=== PATIENT | male | born 1945 | race Caucasian/White ===

== ENCOUNTER 2017-04-11 04:57 | Inpatient (IN) ==
[2017-04-05 16:37] LABS: Appearance,Urine CLEAR; Bilirubin,Urine NEG (NEG); Color,Urine YELLOW; Glucose,Urine (UA) NEGATIVE (NEG); Leukocyte Esterase,Urine NEG /uL (NEG); Nitrate,Urine NEG (NEG); Protein,Urine NEG (NEG); Specific Gravity,Urine 1.012 (1.000-1.035); Urine Blood NEG mg/dL (<0.03); Urobilinogen,Urine NEG (NEG)
[2017-04-05 17:12] LABS: Basophils # (Auto) 0 K/mcL (0.0-0.3); Basophils % (Auto) 0.7 % (0.0-2.0); Eosinophils # (Auto) 0 K/mcL (0.0-0.7); Eosinophils % (Auto) 0.9 % (0.0-7.0); Granulocytes % (Auto) 49.8 % (38.0-78.0); Lymphocytes # (Auto) 2.2 K/mcL (1.5-4.8); Mean Cell Volume 89.6 fL (80.0-100.0); Mean Corpuscular HGB Conc 34.3 g/dL (31.0-36.0); Mean Corpuscular Hemoglobin 30.7 pg (26.0-34.0); Monocytes # (Auto) 0.5 K/mcL (0.1-0.9); Monocytes % (Auto) 8.6 % (1.0-12.0); Platelet Count 238 K/mcL (140-440); RBC 5.23 M/mcL (4.50-5.90); Red Cell Distribution Width 13.6 % (11.5-14.5)
[2017-04-05 17:15] LABS: Blood Urea Nitrogen 15 mg/dl (8-23)
[2017-04-11] MEDS ORDERED: CELECOXIB 200 MG CAPSULE PO SCH (05:00)
[2017-04-11] MEDS ORDERED: PREGABALIN 75 MG CAPSULE PO SCH (05:00)
[2017-04-11] MEDS ORDERED: oxyCODONE 10 MG TAB.ER.12H PO SCH (05:00)
[2017-04-11] MEDS ORDERED: ceFAZolin 1 GM VIAL IV SCH (05:00)
[2017-04-11] MEDS ORDERED: PHENYLEPHRINE 10 MG/ML VIAL IV ONE (07:40)
[2017-04-11] MEDS ORDERED: DEXAMETHASONE 10 MG/ML VIAL IV ONE (07:40)
[2017-04-11] MEDS ORDERED: PROPOFOL 200 MG/20 ML VIAL IV ONE (07:40)
[2017-04-11] MEDS ORDERED: ePHEDrine 50 MG/ML AMPUL IV ONE (07:40)
[2017-04-11] MEDS ORDERED: MIDAZOLAM 2 MG/2 ML VIAL IV ONE (07:40)
[2017-04-11] MEDS ORDERED: TRANEXAMIC ACID 1,000 MG/10 ML VIAL IV ONE ×2 (07:40→09:04)
[2017-04-11] MEDS ORDERED: ONDANSETRON 4 MG/2 ML VIAL IV ONE (07:40)
[2017-04-11] MEDS ORDERED: LIDOCAINE HCL/PF 100 MG/5 ML SYRINGE IV ONE (07:40)
[2017-04-11] MEDS ORDERED: GLYCOPYRROLATE 0.2 MG/ML VIAL IV ONE (07:40)
[2017-04-11] MEDS ORDERED: HEPARIN 20,000 UNIT/ML VIAL IR ONE (08:21)
[2017-04-11] MEDS ORDERED: ONDANSETRON 4 MG/2 ML VIAL IV PRN ×2 (08:43→09:04)
[2017-04-11] MEDS ORDERED: LACTATED RINGERS 250 ML IV PRN (08:43)
[2017-04-11] MEDS ORDERED: ACETAMINOPHEN 1,000 MG/100 ML BOTTLE IV ONE (08:43)
[2017-04-11] MEDS ORDERED: NALOXONE HCL 0.4 MG/ML VIAL IV PRN (08:43)
[2017-04-11] MEDS ORDERED: FLUMAZENIL 0.1 MG/ML ML IV PRN (08:43)
[2017-04-11] MEDS ORDERED: MEPERIDINE 25 MG/ML SYRINGE IV PRN (08:43)
[2017-04-11] MEDS ORDERED: IPRATROPIUM/ALBUTEROL 3 ML AMPUL.NEB NEB PRN (08:43)
[2017-04-11] MEDS ORDERED: fentaNYL 100 MCG/2 ML VIAL IV PRN (08:43)
[2017-04-11] MEDS ORDERED: LACTATED RINGERS 1,000 ML IV SCH (08:45)
--- NOTE | 2017-04-11 09:03 | Brief Operative Note ---
Date of procedure: 04/11/17 Pre-op diagnosis: Left hip severe DJD Post-op diagnosis: same Procedure: Left total hip arthroplasty direct anterior Grafts/Implants: Yes (Depuy Actis 10 std, +5 36 delta head, 60 cup, neutral altrx liner) Anesthesia: spinal, GLMA Findings: large joint effusion Complications: none Surgeon: Denis Galarza Hybrid Corn Breeder: Renan Pearce Estimated blood loss (cc): 150 Specimens Removed/Pathology: none sent Condition: stable Disposition: PACU
[2017-04-11] MEDS ORDERED: MAGNESIUM HYDROXIDE 30 ML ORAL.SUSP PO PRN (09:04)
[2017-04-11] MEDS ORDERED: KETOROLAC 30 MG/ML VIAL IV PRN (09:04)
[2017-04-11] MEDS ORDERED: HYDROmorphone 2 MG/ML SYRINGE IV PRN (09:04)
[2017-04-11] MEDS ORDERED: BISACODYL 10 MG SUPP.RECT PR PRN (09:04)
[2017-04-11] MEDS ORDERED: POLYETHYLENE GLYCOL 3350 17 GM PACKET PO PRN (09:04)
[2017-04-11] MEDS ORDERED: BENZOCAINE/MENTHOL 1 LOZENGE PO PRN (09:04)
[2017-04-11] MEDS ORDERED: HYDROcodone/APAP 10/325MG TABLET PO PRN (09:04)
[2017-04-11] MEDS ORDERED: FLEETS ADULT ENEMA PR PRN (09:04)
[2017-04-11] MEDS ORDERED: ACYCLOVIR 400 MG TABLET PO PRN (09:10)
--- NOTE | 2017-04-11 10:20 | Operative Note ---
DATE OF OPERATION: 04/11/2017 PREOPERATIVE DIAGNOSIS: Left hip severe osteoarthritis. POSTOPERATIVE DIAGNOSIS: Left hip severe osteoarthritis. PROCEDURE PERFORMED: Left anterior total hip arthroplasty placing a DePuy Actis size 10 standard offset femoral stem, a +5, 36 mm delta ceramic head ball, a 60 mm 3-hole [place] cup with a neutral AltrX liner. SURGEON: Denis Galarza MD. VISITING HOUSEKEEPER: Renan Pearce PA-C ANESTHESIA: Spinal plus general. DRAINS: None. SPECIMENS: Femoral head and reamings, which were discarded. BLOOD LOSS: 150 mL COMPLICATIONS: None. POSTOPERATIVE CONDITION: Stable. INDICATIONS FOR SURGERY: This is a 71-year-old male with progressive worsening left hip pain. Radiographs showed severe [id number] osteoarthritis. FINDINGS AT SURGERY: He had a large joint effusion and complete cartilage loss off the femoral head. Post-implantation showed good offset and leg length with satisfactory component position. PROCEDURE IN DETAIL: The patient had been seen preoperatively. Informed consent had been obtained after discussion of risks and benefits of surgery. Risks including, but not limited to, bleeding, possibly requiring transfusion; infection, possibly requiring implant removal, prolonged IV antibiotics; injury to nerves, blood vessels, and other surrounding structures; anesthetic risks; incomplete or no resolution of symptoms; leg length discrepancy; dislocation; fracture; DVT and pulmonary embolus risks; and the possibility of needing further revision surgery. He understood these risks and wished to proceed. Correct operative site was marked and the patient was given spinal anesthesia. He was then taken to the operating room and LMA general given. He was carefully positioned on the fracture table and left hip and groin were carefully prepped and draped in normal sterile fashion. Timeout was performed verifying patient name, operative site, and plan. Standard anterior approach incision was made with a scalpel through skin and subcutaneous tissue. Hemostasis was obtained with Bovie cautery. Blunt dissection was taken down onto the tensor fascia and this was undermined circumferentially. Irrisept was irrigated and a ring retractor placed. A scalpel was used through the tensor fascia and then careful blunt dissection taken medial to the muscle belly. Blunt cobras were placed on the superior and inferior neck and then anterior capsulectomy performed after circumflex vessels were coagulated and cut. We then did capsule releases out to the trochanters and then a corkscrew was placed in the femoral head. Osteotome was used under fluoro to identify our neck cut trajectory and then our oscillating tip saw was used to perform our neck osteotomy. The femoral head was removed and the acetabulum was exposed. Labrum was excised circumferentially as well as soft tissue from the floor. We then initially directly medialized to the tear drop and then increased reamer size and angle until a size 59 got rim ream. We trialed the 59 trial and got press-fit, so a 60 3-hole [place] cup was opened. Acetabulum was irrigated with IrriSept, after a minute pulse lavage and then we impacted the cup at approximately 40 degrees of inclination and 25 degrees of anteversion. We got good press-fit, so a center hole cover was placed. A neutral AltrX liner was carefully aligned and impacted and verified to be fully seated. Traction was removed from the leg. It was externally rotated. We completed our capsule release around the medial neck posterior and then the leg was extended and adducted. After exposing the proximal femur, we prepared the femur with sequential broaching up to a size 9 initially. We trialed with a standard offset neck and a +5 head ball. Hip was reduced without excessive tension. AP pelvis was taken to verify neutral rotation and then nonoperative and operative hips x-rays were taken and overlaid. Our leg length and offset appeared to be equal so we went ahead and dislocated. I was able to impact the 9 stem down a little lower so I went up to a size 10. This seated completely, so we opened a 10 stem. The femoral canal was irrigated with IrriSept and after a minute we pulse lavaged. The stem was impacted and seated at the collar on the neck and then we opened a +5, 36 delta ceramic head ball. The stem was carefully cleaned and dried and the head ball briskly impacted. We then reduced the hip. Final fluoro images were taken and saved. We irrigated the joint with IrriSept and after a minute we pulse lavaged with saline. We then used #1 Vicryl, one running proximal and one running distal. Final IrriSept irrigation was done, after a minute final pulse lavage. Vicryl was used to tack fat to fascia and 2-0 Monocryl for subcutaneous and marisela for skin. Xeroform and sterile dressing were applied. The patient was then awakened, extubated, and transferred to recovery in stable condition. FREEMAN:julian Job ID: [id number] Doc ID: [id number] Denis Galarza MD
--- NOTE | 2017-04-11 10:25 | XRay Report ---
CLINICAL INFORMATION: Reason for Exam: COMPARISON: None. FINDINGS: Left total hip prostheses is in near-anatomic alignment. Minimal degenerative changes noted in both SI and right hip. No osseous normality. Soft tissues swelling seen as expected IMPRESSION: Negative Interpreted and Authenticated by: Santi Dhaliwal 04/11/17
[2017-04-11] MEDS: 0.9 % SODIUM CHLORIDE 1,000 ML IV SCH ×2 (11:28→17:41)
--- NOTE | 2017-04-11 14:58 | Discharge Summary ---
Ortho Discharge - [facility] - Patient Instructions Diet: Regular Diet Activity: activity as tolerated, weight bearing as tolerated Total Hip Protocol: Follow activity instructions as provided by Physical Therapy. Dressing Care: May shower in 2 days, Aquacel Ag - leave on for 5 days - Follow Up Plan Disposition: Home, Self-Care Prognosis: Good Rehab Potential: Good - Orders For Discharge Additional Discharge Orders: Physical Therapy at Discharge - [facility] Location: Determined By Patient Toilet Riser Discharge Order Location: Determined By Patient Walker Location: Determined By Patient
[2017-04-11] MEDS: 0.9 % SODIUM CHLORIDE 10 ML SYRINGE IV SCH ×2 (15:09→23:11)
[2017-04-11] MEDS: ceFAZolin 1 GM VIAL IV SCH ×2 (15:09→23:11)
[2017-04-11] MEDS ORDERED: ACETAMINOPHEN 500 MG TABLET PO PRN (17:49)
[2017-04-11] MEDS ORDERED: traMADol 50 MG TABLET PO PRN (17:52)
--- NOTE | 2017-04-11 18:40 | XRay Report ---
CLINICAL INFORMATION: INTRA OP LEFT ANTERIOR HIP ARTHROPLASTY COMPARISON: None. FINDINGS: Images of the OR show left total hip prostheses to be anatomically aligned. No osseous abnormality. Soft tissues normal IMPRESSION: Negative Interpreted and Authenticated by: Santi Dhaliwal 04/11/17
[2017-04-11] MEDS: ASPIRIN 325 MG ENTERIC COATED TABLET PO SCH (20:45)
[2017-04-11] MEDS: DOCUSATE SODIUM 100 MG CAPSULE PO SCH (20:45)
[2017-04-11] MEDS ORDERED: SENNOSIDES 1 TABLET PO SCH (21:00)
[2017-04-11] MEDS ORDERED: SIMVASTATIN 20 MG TABLET PO SCH (21:00)
[2017-04-12] MEDS: 0.9 % SODIUM CHLORIDE 1,000 ML IV SCH (00:58)
[2017-04-12] MEDS: 0.9 % SODIUM CHLORIDE 10 ML SYRINGE IV SCH (04:49)
[2017-04-12] MEDS ORDERED: LOSARTAN 50 MG TABLET PO SCH (09:00)
[2017-04-12] MEDS ORDERED: LOSARTAN/HCTZ 100/25 TABLET PO SCH (09:00)
[2017-04-12] MEDS ORDERED: HYDROCHLOROTHIAZIDE 25 MG TABLET PO SCH (09:00)
[2017-04-12] MEDS ORDERED: amLODIPine 10 MG TABLET PO SCH (09:00)
[2017-04-12] MEDS: ASPIRIN 325 MG ENTERIC COATED TABLET PO SCH (09:21)
[2017-04-12] MEDS: DOCUSATE SODIUM 100 MG CAPSULE PO SCH (09:21)
== END 2017-04-12 11:00 | disposition home or self-care (01) | DRG 470 ==
LOC: MEDSUR 04:57
PROVIDERS: ADMIT Orthopaedic Surgery; ATTEND Orthopaedic Surgery